=== PATIENT | female | born 1940 | race Caucasian/White ===

== ENCOUNTER 2017-02-12 17:25 | Emergency (ER) | payer MEDICARE ==
--- NOTE | 2017-02-12 17:50 | UC ---
UC General HPI - History of Current Complaint Chief Complaint: UCGeneralIllness Stated Complaint: WEAKNESS TIRED LIGHTHEADED Time Seen by Provider: 02/12/17 17:44 Hx Obtained From: Patient Onset/Duration: Gradual Onset - since yesterday. Feeling weak, lightheaded standing and just wants to sleep., Worse Since - onset Onset Severity: Mild Current Severity: Moderate Associated Signs & Symptoms: Positive: SOB - a few days ago with the humidily, but better - Allergy/Home Medications Allergies/Adverse Reactions: Allergies Allergy/AdvReac Type Severity Reaction Status Date / Time No Known Allergies Allergy Verified 02/12/17 17:43 PMH/Surg Hx/FS Hx/Imm Hx Cancer History: Cervical Cancer, Other - Esophageal Other Cancer History: LARYNGEAL - Surgical History Surgical History: Yes Surgery Procedure, Year, and Place: GB 1982. brain aneurysm 09/10/14. carpal tunnel. throat biposy - Social History Occupation: Retired Lives: With Family Alcohol Use: None Substance Use Type: None Smoking Status (MU): Former Smoker Type: Cigarettes Have You Smoked in the Last Year: No When Did the Patient Quit Smoking/Using Tobacco: 2006 Review of Systems Neurological: Weakness All Other Systems Reviewed And Are Negative: Yes Physical Exam Triage Information Reviewed: Yes Appearance: No Pain Distress, Ill-Appearing - JUST WEAK., Thin Vital Signs: Initial Vital Signs Temp 99.3 F 02/12/17 17:37 Pulse 88 02/12/17 17:37 Resp 24 02/12/17 17:37 BP 113/66 02/12/17 17:37 Pulse Ox 96 02/12/17 17:37 Vital Signs Reviewed: Yes Eyes: Positive: Conjunctiva Inflamed ENT: Positive: Pharynx normal, TMs normal Neck exam: Normal Respiratory: Positive: Decreased breath sounds Cardiovascular Exam: Normal Abdomen Description: Positive: Nontender, No Organomegaly, Soft. Negative: CVA Tenderness (R), CVA Tenderness (L) Bowel Sounds: Positive: Present Musculoskeletal Exam: Normal Neurological Exam: Normal Psychological Exam: Normal Skin Exam: Normal Re-Evaluation - Re-Evaluation First Eval Re-Evaluation Time: 19:08 - peripheral pulse is stronger Change: Improved Course/Dx - Differential Dx - Multi-Symptom Differential Diagnoses: Cardiac Ischemia, Metabolic Abnormality, Sepsis Provider Diagnoses: Weakness. Mild dehydration. Esophageal Cancer. COPD Discharge - Discharge Plan Condition: Stable Disposition: HOME Patient Education Materials: Dehydration (ED), Weakness (ED) Additional Instructions: IF YOU ARE NOT FEELING BETTER THEN YOU WILL NEED TO GO TO THE ER. IF YOU HAVE A FEVER YOU WILL NEED TO GO TO THE ER.
[2017-02-12] MEDS ORDERED: NS 0.9% 1000 ML* 1,000 ML IV SCH (18:15)
[2017-02-12] MEDS ORDERED: NS 0.9% 1000 ML* 1,000 ML IV ONE (18:18)
[2017-02-12 19:24] VITALS: BP 124/57
== END 2017-02-12 19:44 | disposition home or self-care (01) ==
LOC: UCCORT 17:25
DX: E86.0 Dehydration (principal); R53.1 Weakness; C15.9 Malignant neoplasm of esophagus, unspecified; J44.9 Chronic obstructive pulmonary disease, unspecified; Z87.891 Personal history of nicotine dependence
CPT/HCPCS: 93005; 96360; 99212; G0463

== ENCOUNTER 2017-04-16 11:30 | Emergency (ER) | payer MEDICARE ==
[2017-04-16 11:43] VITALS: BP 142/66
--- NOTE | 2017-04-16 12:14 | UC ---
Throat Pain/Nasal Dwaine HPI - HPI Summary HPI Summary: 76 y/o female presents to the urgent care c/o weakness SOB, sore throat with difficulty swallowing and a productive cough. Pt reports she s Dx with throat cancer 1 year ago. She is followed by Dr Aparicio and Dr Baeza. She had radiation tx. Since then,she has had problems with swallowing because she states that her salivary glands dried up and food is too dry to swallow. She was 143 lbs at dx and is now 86 lbs. Her PCP is Dr Quintero. Dr Quintero told her about 3 weeks ago she has mono. Her cough is producing a green phlegm. Pt denies fever, chest pain, abdominal pain, urinary symptoms. - History of Current Complaint Chief Complaint: UCGeneralIllness Stated Complaint: SOB/WEAK/NOT EATING Time Seen by Provider: 04/16/17 11:51 Hx Obtained From: Patient Hx Last Menstrual Period: n/a Onset/Duration: Gradual Onset, Lasting Days, Still Present Severity: Moderate Pain Intensity: 4 - sore throat Pain Scale Used: 0-10 Numeric Cough: Productive - green phlegm Related History: Smoking, Other (Noted In Comments) - Troat CA, Hx of bronchitis and pneumonia - Epiglottits Risk Factors Epiglottis Risk Factors: Negative - Allergies/Home Medications Allergies/Adverse Reactions: Allergies Allergy/AdvReac Type Severity Reaction Status Date / Time No Known Allergies Allergy Verified 04/16/17 11:43 Home Medications: Home Medications metFORMIN* [Glucophage 500 MG TAB *] 500 mg PO 0800,1700 04/16/17 [History Confirmed 04/16/17] PMH/Surg Hx/FS Hx/Imm Hx Previously Healthy: Yes Endocrine History: Diabetes Cardiovascular History: Hypertension Respiratory History: COPD, Bronchitis, Pneumonia Other Cancer History: Throat cancer s/p radiation. - Surgical History Surgical History: Yes Surgery Procedure, Year, and Place: GB 1982. brain aneurysm 09/10/14. carpal tunnel. throat biposy - Family History Known Family History: Positive: Unknown Family History: Pt was not close to family - Social History Occupation: Retired Lives: With Family Alcohol Use: None Substance Use Type: None Smoking Status (MU): Former Smoker Type: Cigarettes Have You Smoked in the Last Year: No When Did the Patient Quit Smoking/Using Tobacco: 2006 Review of Systems Constitutional: Negative Skin: Negative Eyes: Negative ENT: Sore Throat Respiratory: Shortness Of Breath Cardiovascular: Negative Gastrointestinal: Negative Genitourinary: Negative Motor: Negative Neurovascular: Negative Musculoskeletal: Negative Neurological: Negative Psychological: Negative All Other Systems Reviewed And Are Negative: Yes Physical Exam Triage Information Reviewed: Yes Appearance: Well-Appearing, No Pain Distress, Well-Nourished, Thin Vital Signs: Initial Vital Signs Temp 98.0 F 04/16/17 11:39 Pulse 89 04/16/17 11:39 Resp 14 04/16/17 11:39 BP 142/66 04/16/17 11:39 Pulse Ox 100 04/16/17 11:39 Vital Signs Reviewed: Yes Eye Exam: Normal Eyes: Positive: Conjunctiva Clear - PERRLA, EOMI ENT Exam: Normal ENT: Positive: Normal ENT inspection, Hearing grossly normal, Pharyngeal erythema, TMs normal. Negative: Nasal congestion, Nasal drainage, Tonsillar swelling, Tonsillar exudate Dental Exam: Normal Neck exam: Normal Neck: Positive: Supple, Nontender, No Lymphadenopathy Respiratory Exam: Normal Respiratory: Positive: Chest non-tender, No respiratory distress, No accessory muscle use, Decreased breath sounds, Wheezing - mild wheezing when coughing Cardiovascular Exam: Normal Cardiovascular: Positive: RRR, No Murmur, Pulses Normal Abdominal Exam: Normal Abdomen Description: Positive: Nontender, No Organomegaly, Soft. Negative: CVA Tenderness (R), CVA Tenderness (L) Bowel Sounds: Positive: Present Musculoskeletal Exam: Normal Musculoskeletal: Positive: Strength Intact, ROM Intact, No Edema Neurological Exam: Normal Neurological: Positive: Alert Psychological Exam: Normal Skin Exam: Normal Throat Pain/Nasal Course/Dx - Course Course Of Treatment: 76 y/o female presents to the urgent care c/o weakness SOB , sore throat with difficulty swallowing and a productive cough. Pt reports she s Dx with throat cancer 1 year ago. She is followed by Dr Aparicio and Dr Baeza. She had radiation tx. Since then,she has had problems with swallowing because she states that her salivary glands dried up and food is too dry to swallow. She was 143 lbs at dx and is now 86 lbs. Her PCP is Dr Quintero. Dr Quintero told her about 3 weeks ago she has mono. Her cough is producing a green phlegm. Pt denies fever, chest pain, abdominal pain, urinary symptoms. HX obtained. Rapid strep ordered: negative. Pt with a Viral pharyngitis and a COPD exacerbation. Pt given Prednisone 60mg PO and Duoneb Tx at the clinic. Pt felt better after the treatment and lungs cleared. Pt Rx Prednisone taper dose and Bactrim PO and Duoneb Cecelia. Pt advised to try to eat milk shakes or Ensure to increase weight. Pt Advised to increase fluid intake and rest. Pt BP today is mildly elevated, advised to decrease salt in her diet and f/u with PCP for further management. If not improvement of symptoms to returned to the Urgent care or f/u with her PCP DR Quintero. Pt is A&OX3 and verbalized the plan of care. Pt left the clinic ambulating - Differential Dx/Diagnosis Differential Diagnosis/HQI/PQRI: Influenza, Mononucleosis, Pharyngitis, Tonsillitis, URI, Other - COPD, pneumonia, Bronchitis Provider Diagnoses: 1- COPD exacerbation. 2- Viral pharyngitis. 3- Uncontrolled HTN - Physician Notification/Consults Discussed Patient Care With: Bhavik Weber - Dr weber agreed with Pt care and treatment Discharge - Discharge Plan Condition: Stable Disposition: HOME Prescriptions: Albuterol/Ipratropium NEB.CECELIA* [Duoneb (Albuterol 2.5 MG/Ipratropium 0.5 MG)] 1 neb INH Q4H #1 box Sulfamethox/Trimethoprim DS* [Bactrim DS 800/160 TAB*] 1 tab PO BID #20 tab predniSONE TAB* [Deltasone TAB*] 20 mg PO DAILY #15 tab Patient Education Materials: Pharyngitis (ED), COPD (Chronic Obstructive Pulmonary Disease) (ED), Low Sodium Diet (ED) Referrals: Lashanda Quintero MD [Primary Care Provider] - 3 Days Additional Instructions: 1-Please take full course of antibiotic for your COPD exacerbation to avoid resistance. Increase fluid intake and rest 2-Take Prednisone PO as directed continue doing the Duoneb treatment at home to alleviate symptoms of SOB 3- If symptoms do not improve or worsen or your develop h fever and severe wheezing please go immediately to the ER further evaluation and treatment. 4- F/u with your PCP in 2-3 days for further management on your COPD
[2017-04-16] MEDS ORDERED: predniSONE TAB* 20 MG PO ONE (12:27)
[2017-04-16] MEDS ORDERED: Albuterol/Ipratropium NEB.SOL* Albuterol 2.5 MG/Ipratropium 0.5 MG 3 ML INH ONE (12:28)
== END 2017-04-16 13:16 | disposition home or self-care (01) ==
LOC: UCCORT 11:30
DX: J67.9 Hypersensitivity pneumonitis due to unspecified organic dust (principal); Z87.891 Personal history of nicotine dependence; J02.8 Acute pharyngitis due to other specified organisms; I10 Essential (primary) hypertension
CPT/HCPCS: 87651; 99213; A9270-GY; G0463; J7512